=== PATIENT | female | born 1980 | race Caucasian/White ===

== ENCOUNTER 2016-09-15 17:40 | Emergency (ER) | payer MEDICAID, OTHER ==
[~2016-09-15] VITALS: Wt 81.0 kg
--- NOTE | 2016-09-15 19:20 | ERD ---
ER Documentation Chief Complaint Date/Time DATE: 09/15/16 TIME: 19:14 Chief Complaint PELVIC PAIN X 1 WEK ?PREG HPI Patient is a 35-year-old female who presents the emergency department with pelvic pain 1 week. Patient reports history of a tubal ligation in 2000. Patient is having suprapubic and bilateral pelvic pain. Patient denies any vaginal bleeding or excessive vaginal discharge. Patient denies any pain with urination. Patient denies any fever, chills, nausea, vomiting, upper abdominal pain. She states her last menstrual period was 2 weeks ago. Denies any home urinary test. Patient states that she has a history of abnormal urine test at home and is requesting a blood draw for her B-HCG levels at this time. ROS All systems reviewed and are negative except as per history of present illness. Medications Home Meds Active Scripts Acetaminophen* (Tylophen*) 500 Mg Capsule, 1 CAP PO Q6H Y for PAIN AND OR ELEVATED TEMP, #20 CAP Prov:NICOLE LOPES PA-C 09/15/16 PMhx/Soc History of Surgery: Yes (tubal ligation) Anesthesia Reaction: No Hx Neurological Disorder: No Hx Respiratory Disorders: No Hx Cardiac Disorders: No Hx Psychiatric Problems: No Hx Miscellaneous Medical Probl: No Hx Alcohol Use: No Hx Substance Use: No Hx Tobacco Use: No Smoking Status: Never smoker Physical Exam Vitals Vital Signs Date Time Temp Pulse Resp B/P Pulse Ox O2 Delivery O2 Flow Rate FiO2 09/15/16 21:51 60 16 118/80 98 Room Air 09/15/16 17:47 98.0 80 18 123/68 99 Physical Exam GENERAL: Well-developed, well-nourished female. Appears in no acute distress. HEAD: Normocephalic, atraumatic. EYES: Pupils are equally reactive bilaterally. EOMs grossly intact. No conjunctival erythema. ENT: Moist mucous membranes. No uvula deviation. No kissing tonsils. NECK: Supple. No lymphadenopathy or thyromegaly. No meningismus. LUNG: Clear to auscultation bilaterally. No rhonchi, wheezing, rales or coarse breath sounds. HEART: Regular rate and rhythm. No murmurs, rubs or gallops. ABDOMEN: No scars, ecchymosis or rashes noted. Soft and nondistended. Tender to palpation in the suprapubic region. Positive bowel sounds in all four quadrants. No rebound tenderness, no guarding. (-) McBurneys point tenderness. No CVA tenderness. BACK: No midline tenderness. EXTREMITIES: Equal pulses bilaterally. No peripheral clubbing, cyanosis or edema. No unilateral leg swelling. NEUROLOGIC: Alert and oriented. Moving all four extremities without any difficulty. Normal speech. Steady gait. SKIN: Normal color. Warm and dry. No rashes or lesions. Results 24 hrs Laboratory Tests Test 09/15/16 19:15 09/15/16 19:32 Beta HCG, Quantitative < 2.4mIU/ml Bedside Urine Blood Negative Bedside Urine Glucose (UA) Negative Bedside Urine Ketones (LAB) Negative Bedside Urine Leukocyte Esterase (L Negative Bedside Urine Nitrite (LAB) Negative Bedside Urine Protein (LAB) Negative Bedside Urine pH (LAB) 6.0 Procedures/MDM ED COURSE: The patient was stable throughout ED course. I kept the patient and/or family informed of laboratory and diagnostic imaging results throughout the ED course. DIAGNOSTIC IMAGING: Read by radiologist. DIAGNOSTIC IMAGING REPORT Patient: JULIA NAVAS : 1980 Age: 35 Sex: F MR #: [id number] DOS: 09/15/16 1906 Ordering MD: NICOLE LOPES PA-C Location: [facility] Room/Bed: PROCEDURE: US Pelvis. CLINICAL INDICATION: Pelvic pain for a week. TECHNIQUE: Multiple sonographic images of the pelvis were obtained utilizing a transabdominal and endovaginal technique. The images were reviewed on a PACS workstation. COMPARISON: No. FINDINGS: The uterus is visualized and measures 7.5 cm sagittal by 5.8 cm AP by 6.6 cm transverse.. The endometrial echo complex is normal and measures 0.84 cm. The ovaries are not evaluated. No abnormal adnexal mass or free intraperitoneal fluid is noted. The urinary bladder is normal but incompletely distended. IMPRESSION: 1. Uterus is unremarkable. 2. The endometrial stripe is normal. 3. The ovaries were not evaluated. RPTAT:AAJJ Melvin Gallagher Physician Date Time Electronically viewed and signed by Melvin Elliott, Physician on 09/15/2016 20:56 JM/ CC: NICOLE LOPES PA-C MEDICAL DECISION MAKING: Patient is a 35-year-old female who presents with pelvic pain. Patient reports history of tubal ligation. Vital signs were reviewed. Patient was afebrile. Urine test was negative. Quantitative beta-hCG was negative. UA showed no signs of acute infection or hematuria. Pelvic US was unremarkable. Given these findings, the patients presentation is most consistent with pelvic pain of unknown etiology. I have a much lower clinical concern for , ectopic , PID, tubo-ovarian abscess, fibroids, endometriosis, vulvovaginitis, uterine prolapse, pyelonephritis, UTI. Unable to rule out malignancy at this time. PRESCRIPTIONS: Tylenol DISCHARGE: At this time, patient is stable for discharge and outpatient management. I have instructed the patient to follow-up with his/her primary care physician in 1-2 days. I have discussed with the patient the possibility of needing to see a OBGYN for further workup and diagnostic studies if the pain persists. I have instructed the patient to promptly return to the ER at any time for any new or worsening symptoms including increased pain, nausea, vomiting, vaginal bleeding , weakness or fever. The patient and/or family expressed understanding of and agreement with this plan. All questions were answered. Home care instructions were provided. Departure Diagnosis: Primary Impression: Pelvic pain Condition: Stable Patient Instructions: Pelvic Pain, Unknown Cause Referrals: [facility] YOU HAVE RECEIVED A MEDICAL SCREENING EXAM AND THE RESULTS INDICATE THAT YOU DO NOT HAVE A CONDITION THAT REQUIRES URGENT TREATMENT IN THE EMERGENCY DEPARTMENT. FURTHER EVALUATION AND TREATMENT OF YOUR CONDITION CAN WAIT UNTIL YOU ARE SEEN IN YOUR DOCTORS OFFICE WITHIN THE NEXT 1-2 DAYS. IT IS YOUR RESPONSIBILITY TO MAKE AN APPOINTMENT FOR FOLOW-UP CARE. IF YOU HAVE A PRIMARY DOCTOR --you should call your primary doctor and schedule an appointment IF YOU DO NOT HAVE A PRIMARY DOCTOR YOU CAN CALL OUR PHYSICIAN REFERRAL HOTLINE AT IF YOU CAN NOT AFFORD TO SEE A PHYSICIAN YOU CAN CHOSE FROM THE FOLLOWING [facility] [address] [facility]. [facility] [address] [facility] [facility] [address] [facility] [address] [facility] [address] [facility]. [facility]. [address] [facility]. [facility] YOU HAVE RECEIVED A MEDICAL SCREENING EXAM AND THE RESULTS INDICATE THAT YOU DO NOT HAVE A CONDITION THAT REQUIRES URGENT TREATMENT IN THE EMERGENCY DEPARTMENT. FURTHER EVALUATION AND TREATMENT OF YOUR CONDITION CAN WAIT UNTIL YOU ARE SEEN IN YOUR DOCTORS OFFICE WITHIN THE NEXT 1-2 DAYS. IT IS YOUR RESPONSIBILITY TO MAKE AN APPOINTMENT FOR FOLOW-UP CARE. IF YOU HAVE A PRIMARY DOCTOR --you should call your primary doctor and schedule and appointment IF YOU DO NOT HAVE A PRIMARY DOCTOR YOU CAN CALL OUR PHYSICIAN REFERRAL HOTLINE AT . IF YOU CAN NOT AFFORD TO SEE A PHYSICIAN YOU CAN CHOSE FROM THE FOLLOWING [facility] INSTITUTIONS: [facility] [address] [place] [address] [facility] [address] [place] [address] [facility] [address] [place] [address] [employer] SPECIAL[place] [address] [facility] [address] [place], [place] [id number] OFFICE FAX DAVI MATAMOROS [address] [place], [place] [id number] [address] PENALOZA ORACLE [address] [place], [place] [phone] MARCOS SAWYER [address] [facility], [address] [id number] YANIRA DICK [address] [place], [place] [id number] [facility] [address] [place], [place] [id number] [address] [facility] [id number] - [place] NEGRON [address], [facility] [id number] MOREIRA, [place] [address] [facility]. [address], [facility] [id number] MURCIA, [facility] [address] [place] [address] Additional Instructions: Call your primary care doctor/OBGYN TOMORROW for an appointment during the next 1-2 days.See the doctor sooner or return here if your condition worsens before your appointment time. NICOLE LOPES PA-C Sep 15, 2016 19:20
[2016-09-15 19:30] LABS: URINE BLOOD (Dip) POC Negative (NEGATIVE)
--- NOTE | 2016-09-15 20:57 | RADRPT ---
PROCEDURE: US Pelvis. CLINICAL INDICATION: Pelvic pain for a week. TECHNIQUE: Multiple sonographic images of the pelvis were obtained utilizing a transabdominal and endovaginal technique. The images were reviewed on a PACS workstation. COMPARISON: No. FINDINGS: The uterus is visualized and measures 7.5 cm sagittal by 5.8 cm AP by 6.6 cm transverse.. The endome trial echo complex is normal and measures 0.84 cm. The ovaries are not evaluated. No abnormal adnex al mass or free intraperitoneal fluid is noted. The urinary bladder is normal but incompletely dist ended. IMPRESSION: 1. Uterus is unremarkable. 2. The endometrial stripe is normal. 3. The ovaries were not evaluated. RPTAT:AAJJ Physician Fior Date Time Electronically viewed and signed by Physician Fior on 09/15/2016 20:56 MILY/
[2016-09-15] MEDS ORDERED: ACET500C5 PO (21:31)
[2016-09-15 21:51] VITALS: BP 118/80; PULSE 60; RESP 16
== END 2016-09-15 21:53 | disposition home or self-care (01) ==
LOC: FTE 17:40
DX: R10.2 Pelvic and perineal pain (principal)
CPT/HCPCS: 36415; 76830; 76856; 81003; 84702